=== PATIENT | male | born 1960 | race Caucasian/White ===

== ENCOUNTER 2021-05-24 11:34 | Observation (INO) ==
[2021-05-24] MEDS ORDERED: Ipratropium/Albuterol Neb 3 ML IH ONE (11:47)
[2021-05-24 12:13] LABS: Basophils % 0.3 %; Eosinophils # 0.2 K/mcL (0.0-0.6); Eosinophils % 2.4 %; Hematocrit 31.8 % (37.5-50.1); Hemoglobin 9.8 g/dL (12.9-16.9); Immature Granulocytes % 0.7 % (0-4); Lymphocytes # 0.3 K/mcL (0.6-4.6); Lymphocytes % 3.4 %; Mean Corpuscular HGB Conc 30.8 g/dL (31.6-35.5); Mean Corpuscular Hemoglobin 28.1 pg (28.0-33.3); Mean Corpuscular Volume 91.1 fL (83.0-100.0); Mean Platelet Volume 11.5 fL (9.4-12.4); Monocytes # 0.8 K/mcL (0.0-1.3); Monocytes % 8.4 %; Neutrophils # 7.6 K/mcL (1.6-8.9); Platelet Count 211 K/mcL (140-400); Red Blood Count 3.49 M/mcL (4.19-5.50); Segmented Neutrophils % 84.8 %
[2021-05-24 12:21] LABS: INR 1.2; Prothrombin Time 13.9 Seconds (9.4-12.1)
[2021-05-24 12:24] LABS: VBG HCO3 30 mEq/L (21-27); VBG PCO2 63 mmHg (41-51); VBG PH 7.29 pH Units (7.32-7.42); VBG PO2 51 mmHg (25-50)
[2021-05-24 12:24] LABS: Activated Partial Thrombo Time 26.8 Seconds (26.0-36.0)
[2021-05-24 12:38] LABS: Alanine Aminotransferase 16 Units/L (7-52); Albumin 3.6 g/dL (3.5-5.7); Albumin/Globulin Ratio 1.1 (1.1-2.2); Alkaline Phosphatase 105 Units/L (34-104); Aspartate Amino Transferase 15 Units/L (13-39); BUN/Creatinine Ratio 29 (6-26); Bilirubin,Direct 0.1 mg/dL (0.0-0.2); Bilirubin,Indirect 0.5 mg/dL (0.0-1.0); Bilirubin,Total 0.6 mg/dL (0.3-1.0); Blood Urea Nitrogen 42 mg/dL (6-20); Calcium 9.2 mg/dL (8.6-10.3); Carbon Dioxide 28 mEq/L (23-29); Chloride 100 mEq/L (98-107); Globulin 3.2 g/dL (2.4-3.5); Glucose 103 mg/dL (70-105); Osmolality,Calculated 295 (280-300); Potassium 4.4 mEq/L (3.5-5.1); Sodium 137 mEq/L (136-145); Total Protein 6.8 g/dL (6.4-8.9); Troponin I 0.05 ng/mL (< 0.04); eGFR For African Americans > 60 (> 60); eGFR For Non-African Americans 50 (> 60)
[2021-05-24] MEDS ORDERED: Azithromycin 500 MG in 0.9 % Sodium Chloride 250 ML IVPB ONE (13:03)
[2021-05-24] MEDS ORDERED: cefTRIAXone 2,000 MG in Water for inj. (sterile) 20 ML IVP ONE (13:03)
[2021-05-24] MEDS ORDERED: Acetaminophen 325 MG TABLET PO PRN (14:00)
[2021-05-24] MEDS ORDERED: Naloxone 0.4 MG/ML INJ IVP PRN (14:00)
[2021-05-24] MEDS ORDERED: Ondansetron 4 MG/2 ML VIAL IVP PRN (14:00)
[2021-05-24] MEDS ORDERED: Aspirin 325 MG TABLET PO ONE (14:07)
[2021-05-24] MEDS ORDERED: Ringers Solution, Lactated 500 ML IVC ONE (14:09)
[2021-05-24 14:57] LABS: Adenovirus Not Detected (Not Detect); Bordetella Pertussis Not Detected (Not Detect); Chlamydophila pneumoniae Not Detected (Not Detect); Coronavirus 229E Not Detected (Not Detect); Coronavirus HKU1 Not Detected (Not Detect); Coronavirus NL63 Not Detected (Not Detect); Coronavirus OC43 Not Detected (Not Detect); Human Metapneumovirus Not Detected (Not Detect); Human Rhinovirus/Enterovirus Not Detected (Not Detect); Influenza A Subtype 2009 H1 Not Detected (Not Detect); Influenza B Not Detected (Not Detect); Mycoplasma pneumoniae Not Detected (Not Detect); Parainfluenza Virus 1 Not Detected (Not Detect); Parainfluenza Virus 2 Not Detected (Not Detect); Parainfluenza Virus 3 Not Detected (Not Detect); Parainfluenza Virus 4 Not Detected (Not Detect); Respiratory Syncytial Virus Not Detected (Not Detect); SARS-CoV-2 Not Detected (Not Detect)
[2021-05-24] MEDS ORDERED: methylPREDNISolone 125 MG/2 ML VIAL IVP ONE (15:03)
[2021-05-24] MEDS: Vancomycin 1,250 MG/262.5 ML IV.SOLN IVPB SCH (15:12)
[2021-05-24] MEDS: Ipratropium/Albuterol Neb 3 ML IH SCH ×2 (16:11→20:02)
[2021-05-24] MEDS: Cefepime HCl 2,000 MG in Water for inj. (sterile) 20 ML IVP SCH (17:12)
[2021-05-24] MEDS: *HR* Heparin 5,000 UNIT/ML VIAL SQ SCH (21:37)
[2021-05-25] MEDS: Ipratropium/Albuterol Neb 3 ML IH SCH ×6 (00:27→19:51)
[2021-05-25 02:02] LABS: Hematocrit 31.2 % (37.5-50.1); Hemoglobin 9.6 g/dL (12.9-16.9); Mean Corpuscular HGB Conc 30.8 g/dL (31.6-35.5); Mean Corpuscular Hemoglobin 28.1 pg (28.0-33.3); Mean Corpuscular Volume 91.2 fL (83.0-100.0); Mean Platelet Volume 11.6 fL (9.4-12.4); Platelet Count 199 K/mcL (140-400); Red Blood Count 3.42 M/mcL (4.19-5.50); Red Cell Distribution Width 13.8 % (11.5-14.5); White Blood Count 6.7 K/mcL (4.3-11.1)
[2021-05-25 02:18] LABS: Calcium 8.7 mg/dL (8.6-10.3); Potassium 4.6 mEq/L (3.5-5.1)
[2021-05-25] MEDS: Cefepime HCl 2,000 MG in Water for inj. (sterile) 20 ML IVP SCH ×2 (04:40→15:07)
[2021-05-25] MEDS: *HR* Heparin 5,000 UNIT/ML VIAL SQ SCH ×2 (05:44→14:37)
[2021-05-25] MEDS: Azithromycin 500 MG in 0.9 % Sodium Chloride 250 ML IVPB SCH (08:29)
[2021-05-25] MEDS: Aspirin 81 MG TAB.CHEW PO SCH (08:30)
[2021-05-25] MEDS: MethylPREDNISolone 40 MG/ML VIAL IVP SCH ×2 (08:40→17:53)
[2021-05-25] MEDS: Ringers Solution, Lactated 1,000 ML IVC SCH (12:04)
[2021-05-25 13:13] LABS: Bilirubin,Urine Negative (Negative); Blood,Urine Negative (Negative); Clarity,Urine Clear (Clear); Color,Urine Yellow (Yellow); Glucose,Urine (UA) Normal (Normal); Hyaline Casts,Urine Few per lpf (None Seen); Ketones,Urine Trace mg/dL (Negative); Leukocyte Esterase,Urine Negative (Negative); Mucus,Urine Few per lpf (None-Few); Nitrite,Urine Negative (Negative); Protein,Urine 70 mg/dL (Neg-Trace); RBC,Urine 0-3 per hpf (0-3); Urobilinogen,Urine Normal (Normal); WBC,Urine 0-3 per hpf (0-3)
[2021-05-25 13:14] LABS: Sodium, Urine 30.4 mEq/L
[2021-05-25] MEDS ORDERED: *HR* OxyCODONE/APAP 10/325 TABLET PO PRN (14:37)
[2021-05-25] MEDS: carvediloL 6.25 MG TABLET PO SCH (15:06)
[2021-05-25] MEDS: amLODIPine 5 MG TABLET PO SCH (15:06)
[2021-05-25] MEDS: Vancomycin 1,250 MG/262.5 ML IV.SOLN IVPB SCH (16:02)
[2021-05-25] MEDS: Morphine Sulfate ER (12 HR) 15 MG TABLET.ER PO SCH (17:53)
[2021-05-26] MEDS: Ipratropium/Albuterol Neb 3 ML IH SCH ×4 (00:10→11:35)
[2021-05-26] MEDS: *HR* Heparin 5,000 UNIT/ML VIAL SQ SCH ×2 (00:22→05:55)
[2021-05-26] MEDS: Morphine Sulfate ER (12 HR) 15 MG TABLET.ER PO SCH (05:53)
[2021-05-26] MEDS: Cefepime HCl 2,000 MG in Water for inj. (sterile) 20 ML IVP SCH (05:53)
[2021-05-26] MEDS: Ringers Solution, Lactated 1,000 ML IVC SCH ×2 (05:54→09:36)
[2021-05-26] MEDS: MethylPREDNISolone 40 MG/ML VIAL IVP SCH (05:55)
[2021-05-26 06:16] LABS: Hemoglobin 9.6 g/dL (12.9-16.9); Mean Corpuscular Volume 89.9 fL (83.0-100.0); Mean Platelet Volume 11.7 fL (9.4-12.4); Platelet Count 212 K/mcL (140-400); Red Blood Count 3.56 M/mcL (4.19-5.50); Red Cell Distribution Width 13.8 % (11.5-14.5)
[2021-05-26 06:36] LABS: Alanine Aminotransferase 17 Units/L (7-52); Albumin 3.5 g/dL (3.5-5.7); Albumin/Globulin Ratio 1.1 (1.1-2.2); Alkaline Phosphatase 105 Units/L (34-104); Aspartate Amino Transferase 15 Units/L (13-39); BUN/Creatinine Ratio 29 (6-26); Bilirubin,Total 0.3 mg/dL (0.3-1.0); Blood Urea Nitrogen 42 mg/dL (6-20); Calcium 9.1 mg/dL (8.6-10.3); Carbon Dioxide 28 mEq/L (23-29); Chloride 101 mEq/L (98-107); Globulin 3.1 g/dL (2.4-3.5); Glucose 154 mg/dL (70-105); Osmolality,Calculated 298 (280-300); Potassium 4.6 mEq/L (3.5-5.1); Sodium 137 mEq/L (136-145); Total Protein 6.6 g/dL (6.4-8.9); eGFR For African Americans > 60 (> 60); eGFR For Non-African Americans 50 (> 60)
[2021-05-26 06:55] VITALS: BP 156/98; PULSE 111; TEMP 97.8; O2SAT 93
[2021-05-26] MEDS ORDERED: Sennosides 8.6 MG TABLET PO SCH (09:00)
[2021-05-26] MEDS: amLODIPine 5 MG TABLET PO SCH (09:22)
[2021-05-26] MEDS: carvediloL 6.25 MG TABLET PO SCH (09:23)
[2021-05-26] MEDS: Aspirin 81 MG TAB.CHEW PO SCH (09:23)
[2021-05-26] MEDS: Azithromycin 500 MG in 0.9 % Sodium Chloride 250 ML IVPB SCH (09:24)
== END 2021-05-26 12:36 | disposition hospice, home (50) ==
LOC: EMEROOARM 11:34 → 3ANU 11:34 → SUATTDRO 15:20 → 3ANU 16:14
PROVIDERS: ADMIT Internal Medicine; ATTEND Internal Medicine